=== PATIENT | female | born 1975 | race Caucasian/White ===

== ENCOUNTER 2017-02-08 10:19 | Outpatient (CLI) ==
[2017-02-08 10:41] VITALS: BMI 20.1
== END 2017-02-08 10:20 | disposition home or self-care (01) ==
LOC: AMBL 10:19
PROVIDERS: ATTEND Internal Medicine
DX: F15.129 Other stimulant abuse with intoxication, unspecified (principal); R25.1 Tremor, unspecified; R00.0 Tachycardia, unspecified; R41.82 Altered mental status, unspecified; R88.8 Abnormal findings in other body fluids and substances

== ENCOUNTER 2017-02-08 10:33 | Emergency (ER) ==
[2017-02-08] MEDS ORDERED: VALIUM SYRINGE IVP STA ×2 (10:38→13:03)
[2017-02-08 10:41] VITALS: BMI 20.1
[2017-02-08 10:53] LABS: BASOPHILS % (AUTO) 0.2 % (0.0-3.0); HEMATOCRIT 31.9 % (37.0-47.0); HEMOGLOBIN 10.9 g/dl (12.0-16.0); IMMATURE GRANULOCYTE % (AUTO) 0.5 % (0.0-5.0); LYMPHOCYTES # (AUTO) 0.7 K/uL (0.60-3.4); LYMPHOCYTES % (AUTO) 3.6 (10.0-50.0); MEAN CORPUSCULAR HEMOGLOBIN 29.6 pg (27.0-31.0); MEAN CORPUSCULAR HGB CONC 34.2 (31.8-35.4); MEAN CORPUSCULAR VOLUME 86.7 fl (81.0-99.0); MONOCYTES # (AUTO) 1.4 K/uL (0.4-2.0); MONOCYTES % (AUTO) 7.5 (0-10); NEUTROPHILS # (AUTO) 16.8 K/ul (2.0-6.9); NEUTROPHILS % (AUTO) 88.2; PLATELET COUNT 326 10^3/uL (140-440); RED BLOOD COUNT 3.68 10^6/ul (4.20-5.40)
[2017-02-08 11:43] LABS: ALBUMIN 4.1 g/dL (3.4-5.0); ALBUMIN/GLOBULIN RATIO 1.05; ANION GAP 23.9; BILIRUBIN,TOTAL 0.83 mg/dL (0.00-1.20); BUN/CREATININE RATIO 35.86; CALCIUM 9.7 mg/dL (8.2-10.2); CREATININE 0.92 mg/dL (0.60-1.30); POTASSIUM 3.9 mmol/L (3.5-5.10); TROPONIN I 0.015 ng/ml (0.0000-0.4000)
[2017-02-08] MEDS ORDERED: SODIUM CHLORIDE 1,000 ML IV STA ×2 (12:28→13:15)
--- NOTE | 2017-02-08 12:32 | ED.PDOC ---
General ED Provider: Dr. JALEESA COREY Chief Complaint: Overdose Stated Complaint: OVERDOSE Time Seen by Physician: 10:34 Mode of Arrival: Ambulance Information Source: Patient, EMT Exam Limitations: No limitations [facility] Nursing and Triage Documentation Reviewed and Agree: Yes Psychological Complaint Exam - Substance Abuse/Use Complaint/Exam Patient Complains Of Substance Abuse Of: Amphetamines, Other (admitted to use at 4 am , daughter ramila stated she is more than likely abusing longer than she reports) Onset/Duration: 7 am snorting it , ingesting it smoking it Abuse Began: this episode 4 am but her family think it is on going few days Timing: Daily (few days now family does not know here she obtains the drugs) Initial Severity: Moderate Current Severity: Severe Character: Present: Fearful, Anxious, Frustrated Aggravating: Reports: Recent stress ( in the family ) Alleviating: Reports: None Associated Signs And Symptoms: Reports: Paranoid behavior, Appetite change, Social withdrawal, Social isolation, Tremulous, Agitated Related History: Reports: Prior psych counseling ([facility] per ramila ). Denies: Suicidal thoughts, Suicidal plan, Homicidal thoughts, Prior attempts, Prior psych admission, Prior abuse counseling, Prior abuse admission Possible Multi Drug Ingestion: No Completed Suicide Risk Factors: None Patient Accompanied By: Family Patient In Custody Of Police: No Social Withdrawal Present: No (recently only due to increase abuse of drugs) Social Isolation Present: No Prior Suicide Attempt: No Injury From Prior Suicide Attempt: No Patient Uncooperative For Exam: No Mood: Present: Anxious Appearance: Present: Clean Thought Process: Present: Illogical Insight: Present: Poor Memory: Intact Judgement: Impaired Danger To Others: No (at present time ) Patient Medically Stable For: Psych evaluation Differential Diagnoses: Drug Abuse, Depression Quality Indicator For Non-Traumatic Chest Pain/Syncope: EKG Performed Review of Systems - Review Of Systems Constitutional: Reports: Malaise Eyes: Reports: No symptoms Ears, Nose, Mouth, Throat: Reports: No symptoms Respiratory: Reports: No symptoms Cardiac: Reports: No symptoms GI: Reports: No symptoms : Reports: No symptoms Musculoskeletal: Reports: No symptoms Skin: Reports: Other (RASH OF PSORSIASIS) Neurological: Reports: Anxiety, Depressed, Emotional problems Endocrine: Reports: No symptoms Hematologic/Lymphatic: Reports: No symptoms All Other Systems: Reviewed and Negative Past Medical History - Past Medical History Previously Healthy: Yes Endocrine: Reports: None Cardiovascular: Reports: None Respiratory: Reports: None Hematological: Reports: None Gastrointestinal: Reports: None Genitourinary: Reports: None Neuro/Psych: Reports: None Musculoskeletal: Reports: None Cancer: Reports: None Last Menstrual Period: 2 days ago - Surgical History General Surgical History: Reports: Tubal ligation - Family History Family History: Reports: Unknown - Social History Smoking Status: Current every day smoker Hx Substance Use: Yes (meth) Alcohol Screening: None Physical Exam - Physical Exam Appearance: Ill-appearing Ill-appearing: Moderate Pain Distress: Moderate Eyes: CHERIE, EOMI, Conjunctiva clear ENT: Ears normal, Nose normal, Oropharynx normal Respiratory: Airway patent, Breath sounds clear, Breath sounds equal, Respirations nonlabored Cardiovascular: Tachycardia GI/: Soft, Nontender, No masses, Bowel sounds normal, No Organomegaly Musculoskeletal: Normal strength, ROM intact, No edema, No calf tenderness Skin: Warm, Dry (CHRONIC RASH OF PSORIASIS), Normal color Neurological: Sensation intact, Motor intact, Reflexes intact, Cranial nerves intact, Alert, Oriented Psychiatric: Affect appropriate, Mood appropriate Interpretation - Nicker And Breaker Rate: Tachy Rhythm: Sinus - EKG Interpretation Rate: Tachy Rhythm: Sinus Ectopy: None [place]: NL ST Segment: Normal Physician Notification - Case Discussed Physician Notified: REEMA whaley Time of Notification: 13:02 (transfer to [facility] ICU) Critical Care Note - Critical Care Note Total Time (mins): 0 Course - Course Hematology/Chemistry: 02/08/17 10:48 02/08/17 10:48 Orders, Labs, Meds: Lab Review 02/08/17 02/08/17 10:48 12:15 WBC 19.10 H RBC 3.68 L Hgb 10.9 L Hct 31.9 L MCV 86.7 MCH 29.6 MCHC 34.2 RDW Coeff of Cintia 15.5 H Plt Count 326 Immature Gran % (Auto) 0.5 Neut % (Auto) 88.2 Lymph % (Auto) 3.6 L [place] % (Auto) 7.5 Eos % (Auto) 0.0 Baso % (Auto) 0.2 Immature Gran # (Auto) 0.1 Neut # 16.8 H Lymph # 0.7 [place] # 1.4 Eos # 0.0 Baso # 0.0 Sodium 143 Potassium 3.9 Chloride 105 Carbon Dioxide 18 L Anion Gap 23.9 BUN 33 H Creatinine 0.92 Estimated GFR (MDRD) 67.00 BUN/Creatinine Ratio 35.86 Glucose 104 Calcium 9.7 Total Bilirubin 0.83 AST 206 H ALT 105 H Alkaline Phosphatase 76 Total Creatine Kinase 7698 CK-MB (CK-2) 101.0 H* CK-MB (CK-2) % 1.49552 Troponin I 0.0150 Total Protein 8.0 Albumin 4.1 Globulin 3.9 Albumin/Globulin Ratio 1.05 Urine Opiates Screen Negative Ur Oxycodone Screen Negative Urine Methadone Screen Negative Ur Propoxyphene Screen Negative Ur Barbiturates Screen Negative U Tricyclic Antidepress Negative Ur Phencyclidine Scrn Negative Ur Amphetamine Screen Positive U Methamphetamines Scrn Positive U Benzodiazepines Scrn Negative Urine Cocaine Screen Negative U Cannabinoids Screen Negative Orders Category Date Time Status EKG-(ED ONLY) Stat CARDIO 02/08/17 10:37 Completed EKG-(ED ONLY) Stat CARDIO 02/08/17 12:28 Completed ED IV/MEDIPORT/POWERPORT .ONCE EMERGENCY 02/08/17 10:37 Active BLOOD CULTURE Stat LAB 02/08/17 12:40 Ordered CBC W/ AUTO DIFF Stat LAB 02/08/17 10:48 Completed COMPREHENSIVE METABOLIC PANEL Stat LAB 02/08/17 10:48 Completed CREATINE KINASE Stat LAB 02/08/17 10:48 Completed LACTIC ACID Stat LAB 02/08/17 12:40 Ordered PROCALCITONIN Stat LAB 02/08/17 Ordered TROPONIN I Stat LAB 02/08/17 10:48 Completed URINE DRUG SCREEN (RAPID FOR ED) [DRUG SCREEN, URINE, LAB 02/08/17 12:15 Completed RAPID] Stat 0.9 % Sodium Chloride [Saline Flush] MEDS 02/08/17 10:37 Active 1 syr IVF PRN PRN Diazepam Syringe [Valium Syringe] MEDS 02/08/17 10:38 Discontinued 2 mg IVP ONCE STA Sodium Chloride 0.9% [Sodium Chloride] 1,000 ml MEDS 02/08/17 12:28 Active IV BOLUS Medications Generic Name Dose Route Start Last Admin Trade Name Freq PRN Reason Stop Dose Admin Sodium Chloride 1,000 mls @ 1,000 mls/hr 02/08/17 12:28 02/08/17 12:29 Sodium Chloride IV 02/08/17 13:27 1,000 mls/hr BOLUS STA Administration Sodium Chloride 1 syr 02/08/17 10:37 02/08/17 10:49 Saline Flush IVF 1 syr PRN PRN Administration To flush IV Discontinued Medications Generic Name Dose Route Start Last Admin Trade Name Freq PRN Reason Stop Dose Admin Diazepam 2 mg 02/08/17 10:38 02/08/17 10:48 Valium Syringe IVP 02/08/17 10:39 2 mg ONCE STA Administration Vital Signs: Temp Pulse Resp BP Pulse Ox 02/08/17 10:34 99.9 F H 135 H 24 144/73 H 93 L Departure - Departure Time of Disposition: 01:30 Disposition: [facility] SHORT-TRM [facility]P Discharge Problem: Drug overdose, Rhabdomyolysis Instructions: Methamphetamine Abuse (ED) Condition: Fair Pt referred to PMD for follow-up: No Additional Instructions: Please call your Family Physician as soon as possible to schedule a follow-up appointment. Allergies/Adverse Reactions: Allergies coconut oil Allergy (Severe, Verified 02/08/17 10:42) mouth swelling Pt notified to get medical alert necklace Home Medications: Ambulatory Orders Cetirizine HCl [Zyrtec] 10 mg PO DAILY 11/11/14 Clonazepam [Klonopin] 1 mg PO BID 11/11/14 Esomeprazole Magnesium [Nexium] 20 mg PO DAILY 11/11/14 Naproxen Sodium [Aleve] 220 mg PO DAILY 11/11/14 Saccharomyces Boulardii [Florastor] 250 mg PO BID 11/11/14 Discharge Problem: Rhabdomyolysis Qualifiers: Rhabdomyolysis type: non-traumatic Qualifier Code: (M62.82) Rhabdomyolysis
[2017-02-08 12:45] LABS: COCAIN SCREEN,URINE NEGATIVE (NEGATIVE)
[2017-02-08 13:38] VITALS: BP 138/76; TEMP 97.7
== END 2017-02-08 13:39 | disposition short-term general hospital (02) ==
LOC: ED 10:33
DX: T43.621A Poisoning by amphetamines, accidental (unintentional), initial encounter (principal); M62.82 Rhabdomyolysis; F17.210 Nicotine dependence, cigarettes, uncomplicated; Z79.899 Other long term (current) drug therapy
CPT/HCPCS: 36415; 80053; 80306; 82550; 82553; 83605; 84145; 84484; 85025; 87040; 93005; 93010; 96361; 96374; 96376; 99285